=== PATIENT | male | born 1985 | race Caucasian/White ===

== ENCOUNTER 2023-08-04 22:57 | Emergency (ER) | payer SELFPAY ==
[~2023-08-04] VITALS: Ht 170.2 cm; Wt 88.5 kg
[2023-08-04] MEDS: TDAP [DIPH/PERTUSSIS/TET] 0.5 ML VIAL IM ONE (23:41)
[2023-08-05] MEDS ORDERED: TDAP [DIPH/PERTUSSIS/TET] 0.5 ML VIAL IM ONE (00:01)
[2023-08-05 00:05] VITALS: BP 135/66; TEMP 98; O2SAT 98
[2023-08-05] MEDS: TDAP [DIPH/PERTUSSIS/TET] 0.5 ML VIAL IM ONE (00:05)
== END 2023-08-05 00:06 | disposition home or self-care (01) ==
LOC: ER 23:03
DX: S31.823A Puncture wound without foreign body of left buttock, initial encounter (principal); F17.200 Nicotine dependence, unspecified, uncomplicated; W54.0XXA Bitten by dog, initial encounter; Y93.89 Activity, other specified; Y92.89 Other specified places as the place of occurrence of the external cause; Y99.8 Other external cause status
CPT/HCPCS: 90715